=== PATIENT | male | born 1975 | race Caucasian/White ===

== ENCOUNTER 2018-05-03 08:14 | Observation (INO) | payer BC ==
[~2018-05-03 08:14] MED LIST: CEFAZOLIN 1 GM INJ
[2018-05-03] MEDS: LACTATED RINGER'S 1,000 ML IV (10:00)
[2018-05-03] MEDS ORDERED: SUCCINYLCHOLINE CHLORIDE 100 MG/5 ML SYG IV (10:38)
[2018-05-03] MEDS ORDERED: ROCURONIUM 50 MG INJ ×3 (10:38→14:49)
[2018-05-03] MEDS ORDERED: PROPOFOL 20 ML (10:38)
[2018-05-03] MEDS ORDERED: ROPIVACAINE 0.5 % 30 ML VIAL ×2 (10:38→11:56)
[2018-05-03] MEDS ORDERED: LIDOCAINE 2% (SDV) 5 ML INJ (10:38)
[2018-05-03] MEDS ORDERED: GLYCOPYRROLATE 0.4 MG INJ ×3 (10:38→11:19)
[2018-05-03] MEDS ORDERED: NEOSTIGMINE 3 MG/3 ML SYRINGE ×2 (10:38→11:19)
[2018-05-03] MEDS ORDERED: CEFAZOLIN 1 GM INJ (11:04)
[2018-05-03] MEDS: SOD CHLORIDE 0.9% 1,000 ML IV ×2 (11:10→17:30)
[2018-05-03] MEDS ORDERED: ONDANSETRON 4 MG INJ IV ×3 (11:30→17:00)
[2018-05-03] MEDS ORDERED: DIPHENHYDRAMINE 25 MG CAP PO ×2 (11:30→17:00)
[2018-05-03] MEDS ORDERED: morphine 10 MG INJ IV ×2 (11:30→17:00)
[2018-05-03] MEDS: CEFAZOLIN 1 GM INJ IV (11:30)
[2018-05-03] MEDS ORDERED: BISACODYL 10 MG SUPP PR ×2 (11:30→17:00)
[2018-05-03] MEDS ORDERED: OXYCODONE/ACETAMINOPHEN (5/325) TAB PO ×3 (11:30→15:00)
[2018-05-03] MEDS ORDERED: LABETALOL HCL 20MG INJ (12:01)
[2018-05-03] MEDS: THROMBIN 5000 UNIT VIAL (12:10)
[2018-05-03] MEDS: GELATIN SIZE 100 SPONGE (12:10)
[2018-05-03] MEDS: POLYMYXIN/BACITRACIN 1L IRRIG ×3 (12:14→15:43)
[2018-05-03] MEDS ORDERED: ONDANSETRON 4 MG INJ (14:21)
[2018-05-03] MEDS ORDERED: MIDAZOLAM 1 MG/ML 2 ML INJ IV (15:00)
[2018-05-03] MEDS ORDERED: DIPHENHYDRAMINE 50 MG INJ IV (15:00)
[2018-05-03] MEDS ORDERED: METOCLOPRAMIDE 10 MG INJ IV (15:00)
[2018-05-03] MEDS ORDERED: FENTAnyl 50 MCG/ML VIAL IV ×3 (15:00)
[2018-05-03] MEDS ORDERED: HYDROmorphONE 1 MG/5 ML IV SYRINGE IV (15:00)
[2018-05-03] MEDS ORDERED: LABETALOL HCL 20MG INJ IV (15:00)
[2018-05-03] MEDS ORDERED: EPHEDrine SULFATE 50 MG/5 ML SYG IV (15:00)
[2018-05-03] MEDS ORDERED: hydrALAzine 20 MG INJ IV (15:00)
[2018-05-03] MEDS: HYDROmorphONE 1 MG/5 ML IV SYRINGE IV ×2 (16:35→16:50)
[2018-05-03] MEDS: MEPERIDINE 25 MG INJ IV (16:46)
[2018-05-03] MEDS ORDERED: HYDROmorphONE 0.2 MG/ML PCA IV (17:00)
[2018-05-03] MEDS ORDERED: CEFAZOLIN 1 GM INJ IV (17:00)
[2018-05-03] MEDS: HYDROmorphONE 0.2 MG/ML PCA IV ×2 (17:08→23:51)
[2018-05-03] MEDS: CEFAZOLIN 1 GM/50 ML (PMX) 50 ML IVPB (17:30)
[2018-05-03] MEDS ORDERED: SENNA/DOCUSATE NA (8.6MG/50MG) TAB PO (21:00)
[2018-05-03] MEDS: SENNA/DOCUSATE NA (8.6MG/50MG) TAB PO (21:18)
[2018-05-03] MEDS: OXYCODONE/ACETAMINOPHEN (5/325) TAB PO (22:30)
[2018-05-04] MEDS: CEFAZOLIN 1 GM/50 ML (PMX) 50 ML IVPB ×3 (01:11→17:18)
[2018-05-04] MEDS: SOD CHLORIDE 0.9% 1,000 ML IV ×3 (04:02→22:15)
[2018-05-04] MEDS: OXYCODONE/ACETAMINOPHEN (5/325) TAB PO ×3 (04:04→17:17)
[2018-05-04] MEDS: HYDROmorphONE 0.2 MG/ML PCA IV ×3 (06:31→19:20)
[2018-05-04] MEDS: SENNA/DOCUSATE NA (8.6MG/50MG) TAB PO ×2 (09:34→20:50)
[2018-05-04] MEDS: LACTATED RINGER'S 1,000 ML IV (10:00)
[2018-05-04] MEDS: DIAZEPAM 5 MG TAB PO ×2 (11:33→19:22)
[2018-05-04] MEDS: RIVAROXABAN 10 MG TABLET PO (17:17)
[2018-05-04] MEDS ORDERED: RIVAROXABAN 10 MG TABLET PO (17:55)
[2018-05-05] MEDS: OXYCODONE/ACETAMINOPHEN (5/325) TAB PO ×2 (00:47→11:32)
[2018-05-05] MEDS: CEFAZOLIN 1 GM/50 ML (PMX) 50 ML IVPB ×2 (01:34→09:40)
[2018-05-05] MEDS: HYDROmorphONE 0.2 MG/ML PCA IV (02:03)
[2018-05-05] MEDS: SOD CHLORIDE 0.9% 1,000 ML IV (08:31)
[2018-05-05] MEDS: SENNA/DOCUSATE NA (8.6MG/50MG) TAB PO (09:40)
[2018-05-05] MEDS ORDERED: MAGNESIUM HYDROXIDE 30ML CUP PO ×2 (21:00)
== END 2018-05-05 13:50 | disposition home or self-care (01) ==
LOC: SDS 08:14 → REC 11:15 → MS1 17:45
DX: M19.071 Primary osteoarthritis, right ankle and foot (principal); T84.84XA Pain due to internal orthopedic prosthetic devices, implants and grafts, initial encounter; M25.771 Osteophyte, right ankle; Y83.8 Other surgical procedures as the cause of abnormal reaction of the patient, or of later complication, without mention of misadventure at the time of the procedure
CPT/HCPCS: 20680; 73610-RT; 97110; 97116; 97161; 97530; 99217